=== PATIENT | female | born 1935 | race Caucasian/White ===

== ENCOUNTER 2019-06-19 14:28 | Emergency (ER) | payer OTHER ==
[~2019-06-19] VITALS: Ht 152.4 cm; Wt 65.8 kg
[2019-06-19] MEDS ORDERED: LEVOTHYROXINE25 MCG (15:19)
[2019-06-19] MEDS ORDERED: ALLOPURINOL PO (15:20)
[2019-06-19] MEDS ORDERED: VITAMINA D (15:20)
[2019-06-19] MEDS ORDERED: ISOSORBIDE DINI30 MG PO (15:22)
[2019-06-19] MEDS ORDERED: ASPIR 8181 MG PO (15:22)
[2019-06-19] MEDS ORDERED: KLONOPIN (15:23)
[2019-06-19] MEDS ORDERED: CARVEDILOL3.125 MG (15:23)
[2019-06-19] MEDS ORDERED: PRAVASTATIN SOD40 MG PO (15:24)
[2019-06-19] MEDS ORDERED: THORAZINE (15:24)
== END 2019-06-19 22:06 | disposition designated cancer center or children's hospital (05) ==
LOC: ER 14:28
DX: I95.89 Other hypotension (principal); R00.1 Bradycardia, unspecified; I48.91 Unspecified atrial fibrillation; R53.83 Other fatigue; Z74.01 Bed confinement status